=== PATIENT | female | born 1960 | race Hispanic/Latino ===

== ENCOUNTER 2017-03-16 21:45 | Emergency (ER) | payer SELFPAY ==
[~2017-03-16] VITALS: Ht 157.5 cm; Wt 49.4 kg
--- NOTE | 2017-03-16 22:27 | Diagnostic Imaging Report ---
EXAM: CHEST 2 VIEWS, PA and lateral DATE: 03/16/2017 10:03 PM Time stamp on exam: 2210 hours INDICATION: Chest pain COMPARISON: None FINDINGS: LINES/TUBES: None LUNGS: No consolidations or edema. Faint 1 cm nodular density in the left upper lung periphery. PLEURA: No effusions or pneumothorax. HEART AND MEDIASTINUM: Normal size and contour. BONES AND SOFT TISSUES: No acute findings. IMPRESSION: No acute thoracic abnormality. Faint 1 cm nodular density in the left upper lung periphery could represent overlapping shadows or a pulmonary nodule. A follow-up PA and lateral view of the chest is recommended in 2 months. Signed by: Dr. Cristina Sanders M.D. on 03/16/2017 10:23 PM
[2017-03-16 23:34] VITALS: BP 112/62
== END 2017-03-16 23:41 | disposition home or self-care (01) ==
LOC: ER 21:57
DX: M94.0 Chondrocostal junction syndrome [Tietze] (principal); R51 Headache
CPT/HCPCS: 71020; 93005; 99283